=== PATIENT | female | born 1980 | race Two or more races ===

== ENCOUNTER 2016-11-09 23:12 | Emergency (ER) | payer MEDICAID ==
[~2016-11-09] VITALS: Ht 162.6 cm; Wt 69.9 kg
[2016-11-10 07:39] VITALS: BP 111/61
== END 2016-11-10 07:40 | disposition home or self-care (01) ==
LOC: ER 23:17
DX: S62.667A Nondisplaced fracture of distal phalanx of left little finger, initial encounter for closed fracture (principal); Y08.89XA Assault by other specified means, initial encounter; Y93.89 Activity, other specified; Y99.8 Other external cause status; Y92.89 Other specified places as the place of occurrence of the external cause
CPT/HCPCS: 29125; 73140

== ENCOUNTER 2021-07-16 22:02 | Emergency (ER) | payer MEDICAID ==
[~2021-07-16] VITALS: Ht 162.6 cm; Wt 83.9 kg
[2021-07-16 22:38] LABS: Urine Bacteria FEW /hpf (None Seen); Urine Blood Negative /uL (Negative); Urine Mucus FEW (None Seen); Urine Specific Gravity 1.034 (1.001-1.035); Urine WBC 1 /hpf (0 - 5)
[2021-07-16] MEDS ORDERED: KETOROLAC TROMETH 60MG/2ML VIAL IM ONE (23:00)
[2021-07-16 23:05] VITALS: BP 148/83
== END 2021-07-17 00:45 | disposition home or self-care (01) ==
LOC: ER 22:04
DX: S39.011A Strain of muscle, fascia and tendon of abdomen, initial encounter (principal); E66.9 Obesity, unspecified; Z68.31 Body mass index [BMI] 31.0-31.9, adult; Z98.890 Other specified postprocedural states; Z98.51 Tubal ligation status; X58.XXXA Exposure to other specified factors, initial encounter; Y93.89 Activity, other specified; Y92.89 Other specified places as the place of occurrence of the external cause; Y99.8 Other external cause status
CPT/HCPCS: 74176; 81001; 81025; 96372; 99284; J1885